=== PATIENT | female | born 1975 | race Caucasian/White ===

== ENCOUNTER 2022-09-06 18:16 | Emergency (ER) | payer BC, SELFPAY ==
[2022-09-06 18:36] VITALS: BMI 25.6
[2022-09-06 18:37] LABS: Microscopic, Urine URINE MICROSCOPIC (MICROSCOPIC)
[2022-09-06 18:40] VITALS: BP 122/84; PULSE 100; RESP 16; TEMP 36.8; O2SAT 99; BMI 26.4
[2022-09-06 18:47] LABS: Appearance,Urine SL CLOUDY (Clear); Bilirubin,Urine Negative (Negative); Blood, Urine 2+ (Negative); Color,Urine YELLOW (Yellow); Glucose,Urine (UA) Negative (Negative); Ketones,Urine Negative (Negative); Leukocyte Esterase,Urine 2+ (Negative); Nitrate,Urine POSITIVE (Negative); Protein,Urine TRACE (Negative); Specific Gravity, Urine >= 1.030 (1.005-1.030); Urobilinogen,Urine 0.2 EU/dl (0.2)
--- NOTE | 2022-09-06 19:00 | CT_ITS ---
PROCEDURE INFORMATION: Exam: CT Abdomen And Pelvis With Contrast Exam date and time: 09/06/2022 7:23 PM Age: 47 years old Clinical indication: Abdominal pain; Generalized; Prior surgery; Surgery date: 6+ months; Surgery type: Tubal ligation; Additional info: Abd. Pain, constipation, dysuria TECHNIQUE: Imaging protocol: Computed tomography of the abdomen and pelvis with contrast. Radiation optimization: All CT scans at this facility use at least one of these dose optimization techniques: automated exposure control; mA and/or kV adjustment per patient size (includes targeted exams where dose is matched to clinical indication); or iterative reconstruction. Contrast material: ISOVUE; Contrast volume: 75 ml; Contrast route: IV; REPORTING DATA: Count of CT and Cardiac NM exams in prior 12 months: This patient has received 0 known CTs and 0 known cardiac nuclear medicine studies in the 12 months prior to the current study. COMPARISON: No relevant prior studies available. FINDINGS: Lungs: A 4 mm subpleural nodule lateral right lower lobe on image 2 of series 2. Diaphragm: Small hiatal hernia. Liver: Subcentimeter low density lesion in the medial right lobe of liver on axial image 31 too small to characterize. Scattered small hepatic granulomas are noted. Liver otherwise unremarkable. Gallbladder and bile ducts: Normal. No calcified stones. No ductal dilation. Pancreas: Normal. No ductal dilation. Spleen: Multiple splenic granulomas are noted. Adrenal glands: Normal. No mass. Kidneys and ureters: Multifocal right renal scarring with associated multifocal caliectasis that may be related to residual from prior episodes of reflux and/or urinary tract infections. Relatively symmetric enhancement is noted. Course and caliber of the right ureter within normal limits. Left kidney and ureter unremarkable. Stomach and bowel: Scattered diverticula in the sigmoid. There is thickening of the sigmoid noted. Colon otherwise unremarkable. GI tract structures otherwise unremarkable with no evident wall thickening allowing for incomplete distention. Appendix: Appendix is normal. No evidence of appendicitis. Intraperitoneal space: See Urinary bladder finding. Vasculature: Atherosclerotic changes of the aorta and iliacs noted. No evidence of aneurysm. Lymph nodes: Multiple subcentimeter retroperitoneal lymph nodes are identified. No pathologically enlarged retroperitoneal nodes identified. Urinary bladder: Bladder is nondistended which limits assessment. Reproductive: Asymmetric fullness of the left ovary measuring 4.8 x 2.9 x 3.8 cm. A 18 mm cystic lesion with a density of 22 noted in the left ovary. Small physiologic cyst in the right ovary noted. Small amount of nonspecific pelvic free fluid. Bones/joints: Unremarkable. No acute fracture. Soft tissues: Unremarkable. IMPRESSION: 1. Asymmetric fullness of the left ovary. A 18 mm cystic lesion left ovary the may reflect a complex cyst. Small amount of pelvic free fluid. Advise further assessment with ultrasound of the pelvis. 2. Thickening of the mid to distal sigmoid may be artifactual from nondistention but can not exclude a colitis in the proper clinical setting. 3. Multifocal extensive renal scarring and associated calyceal dilatation of the right kidney that may be residual of prior episodes of reflux and/or urinary tract infections. 4. A 4 mm subpleural nodule lateral right lower lobe on image 2 of series 2. Lung bases otherwise clear. For patients at low risk (minimal or absent history of smoking and of other known risk factors), no routine follow-up is indicated. For patients at
[2022-09-06 19:08] LABS: Basophils % 0.4 % (0.1-2.0); Chloride 101 mmol/L (98-107); Eosinophils # 0.2 K/mm3 (0.0-0.4); Eosinophils % 1.5 % (0.1-12.0); Hematocrit 36.2 % (37.0-47.0); Hemoglobin 11.7 g/dL (12.2-16.2); Lymphocytes # 2.2 K/mm3 (0.7-4.5); Mean Corpuscular HGB Conc 32.5 g/dL (31.8-35.4); Mean Corpuscular Hemoglobin 27.3 pg (27.0-31.2); Mean Corpuscular Volume 84.1 fl (81-99); Mean Platelet Volume 7.5 fl (7.4-10.4); Monocytes # 0.7 K/mm3 (0.1-1.0); Monocytes % 5.9 % (1.7-9.3); Neutrophils # 7.9 K/mm3 (1.8-7.8); Neutrophils % 72.2 % (37.0-80.0); Platelet Count 426 K/mm3 (142-424); Potassium 3.5 mmoL/L (3.5-5.1); Sodium 139 mmol/L (136-145); White Blood Count 10.9 K/mm3 (4.8-10.8)
[2022-09-06 19:11] LABS: Alanine Aminotransferase 24 U/L (12-78); Albumin Level 3.6 g/dl (3.5-5.0); Albumin/Globulin Ratio 0.9 (1.1-1.8); Alkaline Phosphatase 69 U/L (38-126); Amylase 69 U/L (30-110); Anion Gap 12.5 mEq/L (5-15); Aspartate Amino Transferase 26 U/L (14-36); Bilirubin,Total 0.2 mg/dl (0.2-1.3); Blood Urea Nitrogen 9 mg/dl (7-17); Calcium 8.7 mg/dl (8.4-10.2); Carbon Dioxide 29 mmol/L (22.0-30.0); Creatinine Clearance Estimated 114 mL/min (50-200); Estimated Glomerular Filt Rate 106 ml/min (>60); GFR (African American) 129 ML/MIN (>60); Globulin 3.9 g/dL (1.3-3.2); Glucose 69 mg/dl (74-100); Total Protein,Serum 7.5 g/dl (6.3-8.2)
[2022-09-06 19:13] LABS: Lipase 25 U/L (23-300)
[2022-09-06 19:30] LABS: Bacteria,Urine 2+ /lpf; WBC,Urine 20-50 #/hpf (0-3)
[2022-09-06 20:00] VITALS: BP 122/82; PULSE 95; O2SAT 95
[2022-09-06 20:30] VITALS: BP 117/79; PULSE 92; O2SAT 94
[2022-09-06 22:02] VITALS: BP 121/90; PULSE 92; O2SAT 97
[2022-09-06 22:30] VITALS: BP 126/89; PULSE 96; O2SAT 98
--- NOTE | 2022-09-06 22:31 | US_ITS ---
PROCEDURE INFORMATION: Exam: US Pelvis, Transvaginal Exam date and time: 09/06/2022 10:57 PM Age: 47 years old Clinical indication: Pelvic pain; Additional info: L side pain, complex cyst R/O L ovary torsion TECHNIQUE: Imaging protocol: Real-time transvaginal pelvic ultrasound with image documentation. Transvaginal imaging was used for better evaluation of the endometrium, adnexa, and/or cervix. COMPARISON: CT ABDOMEN PELVIS W CON 09/06/2022 7:23 PM FINDINGS: Uterus: Uterus is normal. Endometrial stripe is normal. The uterus measures 6.2 x 3.4 x 3.7 cm. Endometrial stripe 5 mm. Anteverted uterus. Right ovary/adnexa: No masses in the right ovary. Normal ovarian blood flow. Right ovary measures 2 x 2.4 x 3 cm. Left ovary/adnexa: There is a simple cyst in the left ovary 1.3 cm. Normal ovarian blood flow. There is mild irregular borders in the left ovary which could indicate PID. Left ovary measures 4.5 x 4 x 3.8 cm. Intraperitoneal space: No free fluid. IMPRESSION: Left ovary contains a simple cyst. The left ovary shows ill-defined borders which could be due to mild inflammation and possible PID. Right ovary normal. Uterus normal.
--- NOTE | 2022-09-06 22:36 | PC.NURSE ---
called tourism radio presenter to call in [employer] tech telephone clerk telegraph office. Also allowing family back to pt's room.
--- NOTE | 2022-09-06 22:37 | [facility].EDUROGF ---
Discharge Plan Disposition Patient Disposition: Home, Self-Care Prescriptions Prescriptions: New levofloxacin 500 mg tablet 500 mg PO DAILY Qty: 7 0RF Referrals Follow up/Referrals: Tre Mendez [Primary Care Provider] - See instructions Larissa Tejeda DO [Staff Physician] - See instructions Clinical Impressions Clinical Impression: Ovarian cyst, Urinary tract infection Instructions Patient Instructions: DI for Urinary Tract Infection (UTI) Discharge ED Provider: Shun (JOSE)Omi Female Urogenital HPI General Chief complaint: Urogenital-Female Stated complaint: Pain Left side and back no BM for 2 days Time Seen by Provider: 09/06/22 22:37 Mode of Arrival: Ambulatory Source of Information: Patient and Medical Record Limitations: No Limitations Description of Symptoms (Recalled from ER Triage Doc. by RN): pt to the ED with burning while urinating, bilateral lower back pain and constipation x 2 days. pt denies any abd. pain at this time History of Present Illness HPI Narrative: pt with painful urination and lower back pain - has also lt adnexal pain worse over the last 2 days MD Complaint: dysuria and pelvic pain Onset (ago): day(s) Severity: moderate Urinary Symptoms: dysuria and hematuria : No Related Data Previous Rx's Medication Instructions Recorded levofloxacin 500 mg tablet 500 mg PO DAILY #7 tabs 09/07/22 Allergies Allergy/AdvReac Type Severity Reaction Status Date / Time NKDA - NO KNOWN DRUG Allergy Unknown Uncoded 03/28/17 15:08 [facility] Disclaimer: The information contained in this section may have been updated after the patient was seen, as this information can be updated by other users. Social History Smoking Status: Current every day smoker alcohol intake: never current occupational status: employed Travel in the last 8 weeks: None ROS Obtained: Yes All systems reviewed & no additional complaints except as documented Physical Exam General General appearance: alert Head Head exam: normocephalic Eye Eye exam: Present PERRL and EOMI ENT ENT exam: Present mucous membranes moist Neck Neck exam: Present trachea midline Respiratory Respiratory exam: Absent respiratory distress Cardiovascular Cardiovascular exam: Present regular rate Abdominal Exam Abdominal exam: Present soft and tenderness; Absent guarding or rebound Abdominal tenderness: Present LLQ, suprapubic and moderate Extremities Exam Extremities exam: Present full ROM Back Exam Back exam: Present CVA tenderness (L) Neurological Exam Neurological exam: Present alert, oriented X3 and CN II-XII intact; Absent motor sensory deficit Psychiatric Psychiatric exam: Present normal affect Skin Skin exam: Absent rash Medical Decision Making Medical Records Medical records reviewed: Yes I reviewed the patient's medical records. Stan Inquiry Pt receiving controlled substance: No Vital Signs: 09/06/22 18:40 09/06/22 20:00 09/06/22 20:30 Temperature 98.3 F Temperature Source Oral Pulse Rate 95 H 92 H Pulse Rate [Left Radial] 100 H Respiratory Rate 16 Blood Pressure 122/82 117/79 Blood Pressure [Right Arm] 122/84 Blood Pressure Mean [Right Arm] 96 Blood Pressure Source Blood Pressure Source [Right Arm] Automatic Cuff Blood Pressure Position Blood Pressure Position [Right Arm] Sitting 02 Sat by Pulse Oximetry 99 95 94 L Oxygen Delivery Method Room Air 09/06/22 22:02 09/06/22 22:30 09/06/22 23:31 Temperature Temperature Source Pulse Rate 92 H 96 H Pulse Rate [Left Radial] Respiratory Rate Blood Pressure 121/90 126/89 Blood Pressure [Right Arm] Blood Pressure Mean [Right Arm] Blood Pressure Source Blood Pressure Source [Right Arm] Blood Pressure Position Blood Pressure Position [Right Arm] 02 Sat by Pulse Oximetry 97 98 Oxygen Delivery Method Room Air 09/06/22 23:31 Temperature 98 F Tempera
[2022-09-06 23:31] VITALS: BP 126/89; PULSE 92; RESP 18; TEMP 36.6; O2SAT 96
--- NOTE | 2022-09-06 23:46 | PC.NURSE ---
u/s tech states good blood flow to ovary and states ok to discuss.
== END 2022-09-06 23:31 | disposition home or self-care (01) ==
PROVIDERS: Emergency Medicine; Emergency Provider Emergency Medicine; PCP Pediatrics
DX: N39.0 Urinary tract infection, site not specified (principal); R31.9 Hematuria, unspecified; N83.202 Unspecified ovarian cyst, left side; F17.200 Nicotine dependence, unspecified, uncomplicated
CPT/HCPCS: 74177; 76830; 80053; 81001; 82150; 83690; 85025; 87086; 87088; 87186; 96361; 96374; 96375; 96376; 99285; J2405; Q9967